=== PATIENT | female | born 1975 ===

== ENCOUNTER 2021-04-03 07:30 | Inpatient (IN) | payer OTHER ==
[~2021-04-03] VITALS: Ht 157.5 cm; Wt 81.2 kg
[2021-04-03] MEDS ORDERED: FORTAMET500 MG PO (08:56)
[2021-04-03] MEDS ORDERED: ACID REDUCER20 M1 PO (08:56)
[2021-04-03] MEDS ORDERED: LOSARTAN-HCTZ1 EAC2 PO (08:58)
[2021-04-09] MEDS ORDERED: FAMOTIDINE40 MG (13:00)
[2021-04-09] MEDS ORDERED: NORVASC2.5 MG (13:01)
[2021-04-09] MEDS ORDERED: LOSARTAN POTASS25 MG (13:01)
== END 2021-04-12 16:28 | disposition home or self-care (01) | DRG 743 ==
LOC: OB/GYN 04-09 07:00 → O/R 04-09 10:01 → OB/GYN 04-09 15:57
PROVIDERS: ADMIT Obstetrics & Gynecology; ATTEND Obstetrics & Gynecology
PROC: 0UB70ZZ Excision of Bilateral Fallopian Tubes, Open Approach (ICD-10-PCS; 2021-04-09)
PROC: 0UT90ZZ Resection of Uterus, Open Approach (ICD-10-PCS; principal; 2021-04-09 07:00)
DX: D25.0 Submucous leiomyoma of uterus (principal); D25.1 Intramural leiomyoma of uterus; D25.2 Subserosal leiomyoma of uterus; N72 Inflammatory disease of cervix uteri; N73.6 Female pelvic peritoneal adhesions (postinfective); I10 Essential (primary) hypertension; E11.9 Type 2 diabetes mellitus without complications